=== PATIENT | male | born 2005 | race Caucasian/White ===

== ENCOUNTER 2025-08-11 09:35 | Emergency (ER) | payer BC, SELFPAY ==
--- NOTE | 2025-08-11 10:24 | ED_ITS ---
HPI - Animal Bite General Chief Complaint: Animal Bite Stated Complaint: dog bite Time Seen by Provider: 08/11/25 10:23 Source: patient Mode of arrival: ambulatory Limitations: no limitations History of Present Illness ED Provider: LUIS MCGUIRE narrative: 20-year-old male with no significant past medical history who was playing with friends dog last night the dog was very small but did get aggressive in bit his right leg and left wrist. The patient's tetanus status is up-to-date. He states his friend informed him the dog to rabies vaccination was up-to-date as well. He has no concerns but that he needs some antibiotics given the bite. They have been applying dressings and topical ointment to prevent infection. We did ask him about notifying of a dog bite and he is very unwilling to state where this happened. complaint: animal bite Onset (ago): day(s) (1) Description of animal: household pet Mechanism: bite Location - Extremities: left: forearm and right: lower leg Pain description: dull Context: playing with animal Associated symptoms: none Treatments prior to arrival: wound dressing(s) and antibiotic ointment Related Data Previous Rx's ?Medication ?Instructions ?Recorded amoxicillin 875 mg-potassium 1 tab PO BID #10 tabs clavulanate 125 mg tablet Allergies Allergy/AdvReac Type Severity Reaction Status Date / Time No Known Allergies Allergy Verified 08/11/25 10:27 Review of Systems Review of Systems: Yes all other systems are reviewed and are negative [facility], [facility] Past Medical History Attestation statement: The following information was validated with the patient. Source: old records reviewed Medical History No pertinent past medical history Social History Social History (Updated 08/11/25 @ 14:52 by Concepción Garcia DO) Patient Tobacco Use Status: Never used Tobacco Physical Exam ED Vital Signs: Vital Signs - 24 hr 08/11/25 10:25 08/11/25 12:33 Temperature 97 F 97 F Pulse Rate 63 63 Respiratory Rate 18 18 Blood Pressure 163/71 H 163/71 H Pulse Oximetry 99 99 Oxygen Delivery Method Room Air Room Air BMI result Body Mass Index 23.1 Appearance: Alert. Oriented X3. No acute distress. Eyes: Pupils equal, round and reactive to light. ENT: Pharynx normal. Neck: Normal inspection. Neck supple. CVS: Normal heart rate and rhythm. Pulses normal. Respiratory: No respiratory distress. Breath sounds normal. Abdomen: Soft and nontender. Skin: Skin warm and dry. Normal skin color. Extremities: No lower extremity edema. Bilateral superficial puncture wounds on right inner leg, left forearm inner also has some puncture wounds, there is no signs of infection, no signs of foreign body they are very superficial he is distal neurovascularly intact Neuro: Oriented X 3. No motor deficit. No sensory deficit. Medical Decision Making Medical Decision Making MDM Narrative: 20-year-old male status post dog bite yesterday the wounds themselves are clean he has no risk factors such as diabetes his tetanus is up-to-date the dog's rabies is up-to-date. At this time I am going to start on Augmentin for 5 days to prevent infection and given precautions to return if the areas to appear infected. No further medications or workup needed no concern for foreign body. Differential Diagnosis Differential Diagnoses: The differential diagnosis associated with the presentation includes Dog bite, puncture wound Independent Historian Clinical information obtained from an independent historian. History obtained from or confirmed by: Spouse Prescription Management I considered prescription management with: Antibiotic Discharge Plan Discharge Clinical Impression: Dog bite Qualifiers: Encounter type: initial encounter Qualified Code(s): W54.0XXA - Bitten by dog, initial encounter Patient Disposition: Home, Self-Care Instructions: Animal Bite (ED) Additional Instructions: at this time your wounds are not infected Please monitor for increased redness, swelling, yellow drainage or any other signs of infection Take antibiotic as prescribed and take yogurt to prevent diarrhea Continue to cover it when working but is okay to keep it open apply topical ointment as he has been twice a day Prescriptions: New amoxicillin-pot clavulanate 875-125 mg tablet 1 tab PO BID Qty: 10 0RF Stand Alone Forms: Work/School Release Interventions: ED Discharge Assessment Last Done: 08/11/25 12:33 Discharge Date/Time: 08/11/25 12:34 Print Language: Kazakh
[2025-08-11 10:25] VITALS: BP 163/71; PULSE 63; RESP 18; TEMP 36.1; O2SAT 99; BMI 23.1
[2025-08-11 12:33] VITALS: BP 163/71; PULSE 63; RESP 18; TEMP 36.1; O2SAT 99
== END 2025-08-11 12:34 | disposition home or self-care (01) ==
LOC: HO.ED 10:31
PROVIDERS: Emergency Provider Emergency Medicine
DX: S61.452A Open bite of left hand, initial encounter (principal); S61.552A Open bite of left wrist, initial encounter; W54.0XXA Bitten by dog, initial encounter; Y93.9 Activity, unspecified; Y92.9 Unspecified place or not applicable
CPT/HCPCS: 99282; 99283